=== PATIENT | male | born 1960 | race Two or more races ===

== ENCOUNTER 2024-09-18 19:17 | Emergency (ER) | payer OTHER ==
[~2024-09-18] VITALS: Ht 175.3 cm; Wt 77.1 kg
[2024-09-18] MEDS ORDERED: KETOROLAC TROMETHAMINE 30 MG VIAL IM ONE (20:30)
== END 2024-09-18 21:59 | disposition home or self-care (01) ==
LOC: ER 19:19
DX: S92.514A Nondisplaced fracture of proximal phalanx of right lesser toe(s), initial encounter for closed fracture (principal); X58.XXXA Exposure to other specified factors, initial encounter; Y93.89 Activity, other specified; Y92.89 Other specified places as the place of occurrence of the external cause; Y99.9 Unspecified external cause status